=== PATIENT | male | born 1965 | race Caucasian/White ===

== ENCOUNTER 2022-05-04 11:58 | Inpatient (IN) ==
[2022-05-04 14:15] LABS: Basophils # 0.1 K/mcL (0.0-0.2); Basophils % 0.6 %; Eosinophils # 0.2 K/mcL (0.0-0.6); Hematocrit 47.8 % (37.5-50.1); Hemoglobin 16.1 g/dL (12.9-16.9); Immature Granulocytes % 0.4 % (0-4); Lymphocytes # 0.7 K/mcL (0.6-4.6); Lymphocytes % 7.6 %; Mean Corpuscular HGB Conc 33.7 g/dL (31.6-35.5); Mean Corpuscular Hemoglobin 29.9 pg (28.0-33.3); Mean Corpuscular Volume 88.8 fL (83.0-100.0); Mean Platelet Volume 9.9 fL (9.4-12.4); Monocytes # 0.7 K/mcL (0.0-1.3); Monocytes % 8.5 %; Neutrophils # 6.9 K/mcL (1.6-8.9); Platelet Count 194 K/mcL (140-400); Red Blood Count 5.38 M/mcL (4.19-5.50); Segmented Neutrophils % 80.9 %; White Blood Count 8.5 K/mcL (4.3-11.1)
[2022-05-04 14:35] LABS: Calcium 9.2 mg/dL (8.6-10.3); Potassium 4.4 mEq/L (3.5-5.1)
[2022-05-04] MEDS ORDERED: Dextrose Gel 15 GM/37.5 ML TUBE PO PRN ×2 (15:44)
[2022-05-04] MEDS ORDERED: D5% in Water 1,000 ML IVC PRN (15:44)
[2022-05-04] MEDS ORDERED: *HR* Dextrose 50 % in Water (Syg) 50 ML SYRINGE IVP PRN (15:44)
[2022-05-04] MEDS ORDERED: Naloxone 0.4 MG/ML INJ IVP PRN (15:45)
[2022-05-04] MEDS ORDERED: Ondansetron 4 MG/2 ML VIAL IVP PRN (15:45)
[2022-05-04] MEDS ORDERED: diazePAM 10 MG TABLET PO PRN (16:02)
[2022-05-04] MEDS: Insulin LISPRO 300 UNITS/3 ML VIAL SUBQ SCH ×2 (17:04→22:17)
[2022-05-04] MEDS: Nystatin Cream 15 GM TUBE TP SCH (22:00)
[2022-05-05] MEDS: Insulin LISPRO 300 UNITS/3 ML VIAL SUBQ SCH ×4 (07:32→20:03)
[2022-05-05 08:14] LABS: Basophils # 0.1 K/mcL (0.0-0.2); Basophils % 0.9 %; Eosinophils # 0.2 K/mcL (0.0-0.6); Eosinophils % 2.7 %; Hematocrit 48.6 % (37.5-50.1); Hemoglobin 16.3 g/dL (12.9-16.9); Immature Granulocytes % 0.3 % (0-4); Lymphocytes # 0.6 K/mcL (0.6-4.6); Lymphocytes % 9.7 %; Mean Corpuscular HGB Conc 33.5 g/dL (31.6-35.5); Mean Corpuscular Hemoglobin 29.5 pg (28.0-33.3); Monocytes # 0.8 K/mcL (0.0-1.3); Monocytes % 11.7 %; Neutrophils # 4.8 K/mcL (1.6-8.9); Platelet Count 180 K/mcL (140-400); Red Blood Count 5.52 M/mcL (4.19-5.50); Red Cell Distribution Width 14.1 % (11.5-14.5); Segmented Neutrophils % 74.7 %; White Blood Count 6.4 K/mcL (4.3-11.1)
[2022-05-05] MEDS: Nystatin Cream 15 GM TUBE TP SCH ×2 (08:39→20:05)
[2022-05-05] MEDS: lisinopriL 20 MG TABLET PO SCH (08:39)
[2022-05-05 08:49] LABS: Calcium 9.1 mg/dL (8.6-10.3); Magnesium 1.7 mg/dL (1.6-2.6); Potassium 4.5 mEq/L (3.5-5.1)
[2022-05-05] MEDS: Acetaminophen 325 MG TABLET PO PRN (12:03)
[2022-05-06 01:34] LABS: Basophils # 0.1 K/mcL (0.0-0.2); Basophils % 0.9 %; Eosinophils # 0.2 K/mcL (0.0-0.6); Eosinophils % 3.8 %; Hematocrit 44.8 % (37.5-50.1); Hemoglobin 14.9 g/dL (12.9-16.9); Immature Granulocytes % 0.4 % (0-4); Lymphocytes # 0.8 K/mcL (0.6-4.6); Lymphocytes % 14.6 %; Mean Corpuscular HGB Conc 33.3 g/dL (31.6-35.5); Mean Corpuscular Hemoglobin 29.5 pg (28.0-33.3); Mean Corpuscular Volume 88.7 fL (83.0-100.0); Monocytes # 0.7 K/mcL (0.0-1.3); Monocytes % 12.9 %; Neutrophils # 3.8 K/mcL (1.6-8.9); Platelet Count 169 K/mcL (140-400); Red Blood Count 5.05 M/mcL (4.19-5.50); Segmented Neutrophils % 67.4 %; White Blood Count 5.6 K/mcL (4.3-11.1)
[2022-05-06 01:55] LABS: Potassium 3.9 mEq/L (3.5-5.1)
[2022-05-06] MEDS: Vancomycin 1,500 MG/265 ML IV.SOLN IVPB SCH ×2 (02:50→17:13)
[2022-05-06] MEDS: Insulin LISPRO 300 UNITS/3 ML VIAL SUBQ SCH ×4 (07:51→21:46)
[2022-05-06] MEDS: Nystatin Cream 15 GM TUBE TP SCH ×2 (09:14→21:46)
[2022-05-06] MEDS: lisinopriL 20 MG TABLET PO SCH (09:14)
[2022-05-07] MEDS: Vancomycin 1,500 MG/265 ML IV.SOLN IVPB SCH ×2 (04:15→17:05)
[2022-05-07] MEDS: Acetaminophen 325 MG TABLET PO PRN (04:15)
[2022-05-07 05:02] LABS: Basophils # 0.1 K/mcL (0.0-0.2); Eosinophils # 0.3 K/mcL (0.0-0.6); Hematocrit 47.7 % (37.5-50.1); Hemoglobin 15.5 g/dL (12.9-16.9); Immature Granulocytes % 0.6 % (0-4); Lymphocytes # 0.8 K/mcL (0.6-4.6); Lymphocytes % 11.7 %; Mean Corpuscular HGB Conc 32.5 g/dL (31.6-35.5); Mean Corpuscular Volume 89.3 fL (83.0-100.0); Mean Platelet Volume 10.3 fL (9.4-12.4); Monocytes # 0.9 K/mcL (0.0-1.3); Monocytes % 12.8 %; Neutrophils # 4.7 K/mcL (1.6-8.9); Platelet Count 184 K/mcL (140-400); Red Blood Count 5.34 M/mcL (4.19-5.50); Red Cell Distribution Width 14.1 % (11.5-14.5); Segmented Neutrophils % 69.9 %; White Blood Count 6.8 K/mcL (4.3-11.1)
[2022-05-07 05:21] LABS: BUN/Creatinine Ratio 22 (6-26); Blood Urea Nitrogen 17 mg/dL (6-20); Carbon Dioxide 25 mEq/L (23-29); Chloride 107 mEq/L (98-107); Glucose 122 mg/dL (70-105); Osmolality,Calculated 289 (280-300); Potassium 4.1 mEq/L (3.5-5.1); Sodium 138 mEq/L (136-145)
[2022-05-07] MEDS: Insulin LISPRO 300 UNITS/3 ML VIAL SUBQ SCH ×4 (07:51→20:24)
[2022-05-07] MEDS: lisinopriL 20 MG TABLET PO SCH (10:17)
[2022-05-07] MEDS: Nystatin Cream 15 GM TUBE TP SCH ×2 (10:18→20:23)
[2022-05-07] MEDS ORDERED: Lidocaine -MPF 1% 5 ML AMPUL INFILT ONE (14:58)
[2022-05-07] MEDS: DAPTOmycin 550 MG in 0.9 % Sodium Chloride 100 ML IVPB SCH ×2 (18:21→20:20)
[2022-05-08] MEDS: Acetaminophen 325 MG TABLET PO PRN (06:09)
[2022-05-08 07:44] VITALS: BP 121/65; PULSE 66; TEMP 98.1; O2SAT 97
[2022-05-08] MEDS: lisinopriL 20 MG TABLET PO SCH (09:10)
[2022-05-08] MEDS: Nystatin Cream 15 GM TUBE TP SCH (10:13)
[2022-05-08] MEDS: Insulin LISPRO 300 UNITS/3 ML VIAL SUBQ SCH (10:13)
== END 2022-05-08 10:14 | disposition home or self-care (01) | DRG 315 ==
LOC: EMEROOARM 11:58 → 3BNU 11:58 → SUATTDRO 15:44 → 3BNU 15:53
PROVIDERS: ADMIT Internal Medicine; ATTEND Nurse Practitioner